=== PATIENT | female | born 1960 | race Caucasian/White ===

== ENCOUNTER 2019-04-04 18:31 | Inpatient (IN) | payer OTHER ==
--- NOTE | 2019-04-04 19:03 | ED ---
Psychiatric Complaint - HPI Summary HPI Summary: 58 year old F [facility] complains of worsening depression and suicidal ideation over the last 3 months. She states "I just want the emotional pain to go away." Symptoms aggravated by nothing. Symptoms alleviated by nothing. Patient states she spoke with her primary care provider and counselor today who both referred patient to the ED. tie worker Lindsay spoke with counselor Miryam Leal. Per director social, patient has hx chronic fatigue and is unable to take care of herself. Per director social, patient has hx trauma and a dysfunctional family. Per director social, patient recently reconnected with her parents who live in [place], from whom patient gets financial support, yet patient does not have a great relationship with them. Additionally, patient has four daughters over whom she does not have custody. Per director social, patient admits to being abusive to her dog, and patient's one daughter is on her way up from [place] to help patient take care of the dog. - History Of Current Complaint Chief Complaint: EDMentalHealth Time Seen by Provider: 04/04/19 18:44 Hx Obtained From: Patient Onset/Duration: Lasting Weeks, Still Present Timing: Constant Aggravating Factor(s): Nothing Alleviating Factor(s): Nothing - Allergies/Home Medications Allergies/Adverse Reactions: Allergies Allergy/AdvReac Type Severity Reaction Status Date / Time erythromycin base AdvReac Intermediate Abdominal Verified 11/27/17 11:46 Pain Home Medications: Home Medications Azelastine 0.05% (OPHTH)(NF) [Optivar 0.05% (NF)] 1 drop BOTH EYES BID 04/04/19 [History Confirmed 04/04/19] Bupropion XL* [Wellbutrin XL *] 150 mg PO DAILY 04/04/19 [History Confirmed ] Cetirizine* [ZyrTEC 10 MG TAB*] 10 mg PO DAILY 04/04/19 [History Confirmed 04/04] Estradiol VAG CM (NF) [Estrace VAG CM (NF)] 1 applic VAGINAL WEEKLY 04/04/19 [ History Confirmed 04/04/19] FLUoxetine CAP* [PROzac CAP*] 20 mg PO DAILY 04/04/19 [History Confirmed ] Omeprazole (Nf) [Prilosec (NF)] 40 mg PO DAILY 04/04/19 [History Confirmed 04/04] traZODone TAB* [Desyrel TAB*] 100 mg PO BEDTIME PRN 04/04/19 [History Confirmed 04/04/19] PMH/Surg Hx/FS Hx/Imm Hx Cardiovascular History: Denies: Other Cardiovascular Problems/Disorders Sensory History: Reports: Hx Contacts or Glasses Opthamlomology History: Reports: Hx Contacts or Glasses Psychiatric History: Reports: Hx Depression - Surgical History Surgery Procedure, Year, and Place: . partial hysterectomy. bunionectomy Infectious Disease History: No Infectious Disease History: Denies: Traveled Outside the [place] in Last 30 Days - Family History Known Family History: Positive: Other - breast CA - Social History Alcohol Use: None Hx Substance Use: No Substance Use Type: Reports: None Hx Tobacco Use: No Smoking Status (MU): Never Smoked Tobacco Review of Systems Negative: Fever Positive: Depressed, Other - suicidal ideation All Other Systems Reviewed And Are Negative: Yes Physical Exam - Summary Physical Exam Summary: Appearance: The patient is well-nourished in no acute distress and in no acute pain. Skin: The skin is warm and dry, and skin color reflects adequate perfusion. HEENT: The head is normocephalic and atraumatic. The pupils are equal and reactive. The conjunctivae are clear and without drainage. Nares are patent and without drainage. Mouth reveals moist mucous membranes, and the throat is without erythema and exudate. The external ears are intact. The ear canals are patent and without drainage. The tympanic membranes are intact. Neck: The neck is supple with full range of motion and non-tender. There are no carotid bruits. There is no neck vein distension. Respiratory: Chest is non-tender. Lungs are clear to auscultation and breath sounds are symmetrical and equal. Cardiovascular: Heart is regular rate and rhythm. There is no murmur or rub auscultated. There is no peripheral edema and pulses are symmetrical and equal. Abdomen: The abdomen is soft and non-tender. There are normal bowel sounds heard in all four quadrants and there is no organomegaly palpated. Musculoskeletal: There is no back tenderness noted. Extremities are non-tender with full range of motion. There is good capillary refill. There is no peripheral edema or calf tenderness elicited. Neurological: Patient is alert and oriented to person, place and time. The patient has symmetrical motor strength in all four extremities. Cranial nerves are grossly intact. Deep tendon reflexes are symmetrical and equal in all four extremities. Psychiatric: The patient has an appropriate affect and does not exhibit any anxiety or depression. Triage Information Reviewed: Yes Vital Signs On Initial Exam: Initial Vitals Temp Pulse Resp BP Pulse Ox 96.3 F 85 16 166/96 94 04/04/19 18:34 04/04/19 18:34 04/04/19 18:34 04/04/19 18:34 04/04/19 18:34 Vital Signs Reviewed: Yes Diagnostics - Vital Signs Vital Signs Temp Pulse Resp BP Pulse Ox 04/04/19 18:34 96.3 F 85 16 166/96 94 - Laboratory Result Diagrams: 04/04/19 19:08 04/04/19 19:08 Lab Statement: Any lab studies that have been ordered have been reviewed, and results considered in the medical decision making process. Re-Evaluation - Re-Evaluation First Eval Re-Evaluation Time: 20:34 Comment: patient is medically cleared for MHE Course/Dx - Course Course Of Treatment: Ms. Paulson was medically cleared in the emergency department and underwent a mental health eval. They felt that she was a candidate for admission. - Differential Dx/Clinical Impression Provider Diagnosis: Depression Discharge ED - Sign-Out/Discharge Documenting (check all that apply): Patient Departure Patient Received Moderate/Deep Sedation with Procedure: No - Discharge Plan Condition: Stable Disposition: PSYCHIATRIC FACILITY-[facility] - Billing Disposition and Condition Condition: STABLE Disposition: Psychiatric Facility [facility] - Attestation Statements Document Initiated by Scribe: Yes Documenting Scribe: Aury Centeno Provider For Whom Meredithe is Documenting (Include Credential): Gen Mariee MD Scribe Attestation: Aury Reid, scribed for Gen Mariee MD on 04/04/19 at 2108. Scribe Documentation Reviewed: Yes Provider Attestation: The documentation as recorded by the fortinoibAury rivas accurately reflects the service I personally performed and the decisions made by me, Gen Mariee MD Status of Scribe Document: Viewed
[2019-04-04 19:15] LABS: ABS Monocytes 0.4 10^3/ul (0-0.8); ABS Neutrophils 5.5 10^3/ul (1.5-7.7); Eosinophil % 0.5 %; Hematocrit 43 % (35-47); Lymphocyte % 14.5 %; Mean Corpuscular HGB Conc 35 g/dL (31-36); Mean Corpuscular Hemoglobin 30 pg (27-31); Mean Corpuscular Volume 88 fL (80-97); Mean Platelet Volume 7.3 fL (7.4-10.4); Platelet Count 303 10^3/uL (150-450); Red Blood Count 4.94 10^6 /uL (3.70-4.87); Red Cell Distribution Width 13 % (10-15)
[2019-04-04 19:34] LABS: ALT 18 U/L (7-52); AST 16 U/L (13-39); Albumin 4.3 g/dL (3.2-5.2); Albumin/Globulin Ratio 1.7 (1-3); Alkaline Phosphatase 65 U/L (34-104); Anion Gap 7 mmol/L (2-11); BUN/Creatinine Ratio 10.4 (8-20); Blood Urea Nitrogen 10 mg/dL (6-24); CO2 Carbon Dioxide 27 mmol/L (22-32); Calcium 9.1 mg/dL (8.6-10.3); Chloride 103 mmol/L (101-111); EGFR Non-African American 59.5 (>60); Globulin 2.6 g/dL (2-4); Glucose 114 mg/dL (70-100); Potassium 3.6 mmol/L (3.5-5.0); Sodium 137 mmol/L (135-145); Total Protein 6.9 g/dL (6.4-8.9)
[2019-04-04 19:46] LABS: Acetaminophen < 15 mcg/mL; Alcohol < 10 mg/dL (<10); Salicylate < 2.50 mg/dL (<30)
[2019-04-04 20:00] LABS: TSH (Thyroid Stimulating Horm) 1.78 mcIU/mL (0.34-5.60)
[2019-04-04 20:20] LABS: Urine Appearance Clear; Urine Bacteria 1+ (Absent); Urine Bilirubin Negative (Negative); Urine Blood 2+ (Negative); Urine Color Straw; Urine Glucose Negative (Negative); Urine Ketones Trace (Negative); Urine Nitrite Negative (Negative); Urine Protein Negative (Negative); Urine Red Blood Cell Trace(0-2/hpf) (Absent); Urine Specific Gravity 1.004 (1.010-1.030); Urine Urobilinogen Negative (Negative); Urine White Blood Cell Trace(0-5/hpf) (Absent)
[2019-04-04 20:33] LABS: Urine Benzodiazepine Screen None Detected (None Detect); Urine Opiates Screen None Detected (None Detect)
[2019-04-04] MEDS ORDERED: Al Hydrox/Mg Hydrox/Simet LIQ* 30 ML UDC PO PRN (22:12)
[2019-04-04] MEDS: Acetaminophen TAB* 325 MG PO PRN (23:32)
[2019-04-04] MEDS: traZODone TAB* 100 MG PO PRN (23:33)
[2019-04-05 07:51] LABS: HDL Cholesterol 46.4 mg/dL
[2019-04-05] MEDS: Pantoprazole TAB * 40 MG TAB PO SCH (08:58)
[2019-04-05] MEDS: BuPROPion XL* 150 MG TAB.XL PO SCH (08:58)
[2019-04-05] MEDS: Cholecalciferol TAB* 1000 UNITS PO SCH (08:59)
[2019-04-05] MEDS: FLUoxetine CAP* 20 MG PO SCH (08:59)
[2019-04-05] MEDS ORDERED: Estradiol VAG CM (NF) 1 APPLIC TUBE VAGINAL SCH (09:00)
[2019-04-05] MEDS: Cetirizine* 10 MG TAB PO SCH (09:00)
[2019-04-05] MEDS: Vitamin THERAPEUTIC TAB PO SCH (09:00)
[2019-04-05] MEDS: Acetaminophen TAB* 325 MG PO PRN (09:02)
--- NOTE | 2019-04-05 10:02 | HP ---
H&P (Free Text) History and Physical: Justification for admission: Immediate Safety. CC " I want to give up" The patient was brought to [facility] by herself. She reported that she is hopeless and feels that she wants to give up on everything and doesnt feel supported by her family. Her current stressors include having no support from her family. She talks to 2 of her daughters sometimes. She feels she is unable to take care of herself at home. She reports feeling alone and that no one cares about her. She is wearing a respiratory mask and says that she smells chemicals of new construction. She denied access to firearms or stockpiles of medications. She reported no changes in her sleep and poor appetite. The patient denied homicidal ideation intent or plan. The patient denied auditory and/ or visual hallucinations. MDD Reported feeling depressed and having no energy to do the things she found to be enjoyable in the past. She reported feeling empty inside with feelings of hopelessness , and worthlessness. Anxiety She picks at her arms frequently and this increases when she becomes anxious. At times she feels restless, high strung, or worrying too much most of the time. Denied having symptoms of anxiety such as having times where heart feels that it is beating out of chest , sweaty palms, or shallow breathing. Bipolar Denied symptoms of jose such as having many ideas at once. Denied increased talkativeness where no one can interrupt. Denied feeling irritable most of the time while having an persistent abundance of energy most of the day without the use of energy drinks, stimulants, or recreational drug use. Denied an increase in intensity in goal directed activities. Denied having the decreased need to sleep for days , having prolonged elevated mood , or feeling on top of the world. Denied impulsive risky sexual encounters. Denied spending money recklessly , going on spending sprees wiping out savings. Denied impulsively traveling out of town or country, having super day, and unrealistic wealth or fame. Psychosis Does not endorse hearing things that other people do not hear or seeing things other people do not see. Denied feeling that TV is making references. Denied feeling that people are spying , following , or reading their thoughts. Phobias: Patient denied having excessive fear of a particular thing or situation. Eating disorders: Patient denied having excessive eating habits or feelings of guilt after eating. Denied repeated episodes of self induced vomiting after eating. PTSD Denied flashbacks, nightmares and avoidance of a prior traumatic event. PAST PSYCHIATRIC HISTORY: Prior Diagnosis : Major depressive disorder History of past Psychiatric Hospitalizations: No prior psychiatric admission. History of past suicide/homicide attempts : Denied past suicide attempts. Denied past homicidal incidents. Outpatient follow-up: [facility] and her PCP Medications: Past trials of medications include prozac 20mg which was started a few days ago, and wellbutrin 150mg daily and trazodone. Recently discontinued from [facility] Guardianship: None. FAMILY HISTORY: - Suicide: Denied family history of suicide. - Mental illness: Describes her family as having mental illness but was unable to specify - Substance abuse: Brother uses cocaine and heroin. SUBSTANCE ABUSE HISTORY: Denied using alcohol, tobacco, heroin cocaine or other illicit substances. Denied abusing pills for recreational use. Denied past Substance abuse treatment. SOCIAL HISTORY: - Childhood: Raised by both parents in [place]. She describes her childhood as being rough because her parents would always fight. 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 Denied heart disease, diabetes, cancer. - Allergies: Denied drug or other allergies. Physical Exam: Please see ED note Mental Status Exam on Admission APPEARANCE : 58 year old female who appears older than her stated age. Patient is wearing mask over her mouth and appears to have poor hygiene and grooming. BEHAVIOR: Cooperative , calm EYE CONTACT: Fair PSYCHOMOTOR ACTIVITY: No psychomotor agitation or retardation. MOVEMENTS: No abnormal movements observed. SPEECH : Normal rate, rhythm, low volume MOOD : " Sad " AFFECT : Depressed and range is restricted THOUGHT PROCESS: Formulated and organized in a logical, linear goal directed manner. perseveration about her family dynamic THOUGHT CONTENT: preoccupation about her family dynamic PERCEPTION: No current auditory or visual hallucinations. Doesnt appear to be responding to internal cues. No evidence of depersonalization , de-realization, or illusions SUICIDALITY Passive suicidal ideation HOMICIDALITY Denied homicidal ideation, intent or plan. Insight/judgment: Poor insight and judgment ORIENTATION: Oriented to self, location, and time. Diagnosis on Admission: Major depressive disorder, severe. Excoriation disorder Assessment: 58 year old female with history of depression and passive suicidal ideation came to the hospital and was admitted to the BSU at [facility]. Plan #Admit to BSU, Q15 minute observation. Start regular diet. Encourage participation in activities on the milieu. #Patient evaluated in ED and was determined by the emergency room Physician to be medically fit for admission to the BSU. # Justification for Admission: For immediate safety per outlined in the [facility] Code. # The patient requires psychiatric inpatient admission at this time to assure safety, receive treatment and work toward stabilization. # Labs ordered: CBC, CMP, UDS, TSH, HBA1c, TSH, Toxicology screen, Urine analysis, and lipid profile. # If patient continues to have chemical smells will consider neurology consult as temporal lobe seizures can present with olfactory hallucinations # Obtain collateral information once release is signed. # Collaboration with Social Work #Continue home medication for now. # No history of seizure disorder or eating disorder. # Order to allow for her to use own eye drops #Goals before discharge include: To eliminate/ reduce suicidal ideation Tentative Discharge: Pending psychiatric stabilization The risks, benefits, and alternative treatment options were discussed as well as the risks of refusing treatment. After this discussion and an acknowledgement of this understanding was made. A risk/ benefit assessment of treatment was considered and discussed with the patient. When comparing the risks of treatment with the dangers of not receiving treatment, the benefits of treatment outweigh the treatment risks at this time. Risks of allergy, suicidal ideation, behavioral changes, dystonia, rashes, electrolyte imbalances, movement disorders, cardiac conduction changes, serotonin syndrome, metabolic risks were among some of the risks discussed. Acetaminophen (Tylenol Tab*) 650 mg PO Q4H PRN PRN Reason: PAIN or TEMP > 101 F Last Admin: 04/05/19 09:02 Dose: 650 mg Al Hydrox/Mg Hydrox/Simethicone (Maalox Plus*) 30 ml PO Q4H PRN PRN Reason: INDIGESTION Azelastine HCl (Optivar 0.05% (Nf)) 1 drop BOTH EYES BID [facility] Bupropion HCl (Wellbutrin Xl *) 150 mg PO DAILY [facility] Last Admin: 04/05/19 08:58 Dose: 150 mg Cetirizine HCl (Zyrtec*) 10 mg PO DAILY [facility] Last Admin: 04/05/19 09:00 Dose: Not Given Cholecalciferol (Vitamin D Tab*) 5,000 units PO DAILY [facility] Last Admin: 04/05/19 08:59 Dose: Not Given Estradiol (Estrace Vag Cm (Nf)) 1 applic VAGINAL WEEKLY [facility] Fluoxetine HCl (Prozac Cap*) 20 mg PO DAILY [facility] Last Admin: 04/05/19 08:59 Dose: 20 mg Multivitamins (Theragran Tab*) 1 tab PO DAILY [facility] Last Admin: 04/05/19 09:00 Dose: Not Given Pantoprazole Sodium (Protonix Tab*) 40 mg PO DAILY [facility] Last Admin: 04/05/19 08:58 Dose: 40 mg Trazodone HCl (Desyrel Tab*) 100 mg PO BEDTIME PRN PRN Reason: INSOMNIA Last Admin: 04/04/19 23:33 Dose: 100 mg Sodium 137 mmol/L (135-145) 04/04/19 19:08 Potassium 3.6 mmol/L (3.5-5.0) 04/04/19 19:08 BUN 10 mg/dL (6-24) 04/04/19 19:08 Creatinine 0.96 mg/dL (0.51-0.95) H 04/04/19 19:08 Hemoglobin A1c 5.6 % (4.0-5.6) 04/05/19 07:00 Calcium 9.1 mg/dL (8.6-10.3) 04/04/19 19:08 AST 16 U/L (13-39) 04/04/19 19:08 ALT 18 U/L (7-52) 04/04/19 19:08 Triglycerides 172 mg/dL 04/05/19 07:00 Cholesterol 209 mg/dL 04/05/19 07:00 LDL Cholesterol 128 mg/dL 04/05/19 07:00
[2019-04-05] MEDS: AZELASTINE 0.05% BOTH EYES SCH ×2 (15:07→20:57)
[2019-04-05] MEDS: traZODone TAB* 100 MG PO PRN (22:31)
[2019-04-06] MEDS: Cholecalciferol TAB* 1000 UNITS PO SCH (09:07)
[2019-04-06] MEDS: FLUoxetine CAP* 20 MG PO SCH (09:08)
[2019-04-06] MEDS: BuPROPion XL* 150 MG TAB.XL PO SCH (09:09)
[2019-04-06] MEDS: Pantoprazole TAB * 40 MG TAB PO SCH (09:10)
[2019-04-06] MEDS: AZELASTINE 0.05% BOTH EYES SCH ×2 (09:13→22:14)
[2019-04-06] MEDS: Vitamin THERAPEUTIC TAB PO SCH (09:13)
[2019-04-06] MEDS: Cetirizine* 10 MG TAB PO SCH (09:13)
--- NOTE | 2019-04-06 14:28 | PN ---
Subjective - Subjective Date of Service: 04/06/19 Service Type: [id number] Hosp care 15 min low complexity Subjective: Cee is seen in coverage for Dr. Reeves, who is out for the next week. The patient is found in bed, where she has been all day, and has a myriad of complaints, mostly regarding her isolated life at home. "I've been trying to move back to [place] for the past 4 years and all I've ran into is red tape and a series of roadblocks." She complains of inability to get her [facility] Section 8 housing allowance [place] from [place]. "They want me to go to [place] in person for the interview and I can't do that." She describes herself as a "shut-in" who can't travel because she has sensitivities to the chemicals used in [employer]. She is wearing a patient mask in bed, saying that she's similarly sensitive to the chemicals used here in the hospital. She is requesting home health services and generally appears to be someone who wants others to assist her with multiple things. She denies SI today. Objective - General Observations Appearance: Well Groomed Appears Stated Age: Yes Stature: Overweight Posture: WNL Eye Contact: Average Behavior/Activity: WNL - Interaction Observations Attitude Towards Examiner: Cooperative Stated Mood: Euthymic Affect: Full Speech Pattern/Tone: Clear, Appropriate, Normal Volume Thought Process: Coherent Perception: WNL Thought Content: WNL Hallucination Type: None Delusion Type: None - Cognitive Function Orientation: A&O x 4 Level of Consciousness: Awake Cognition: WNL Estimated Intelligence: Normal Insight: WNL Judgment Within Normal Limits: Yes - Medication Compliance Cooperative with Inpatient Medication Regimen: Yes - Group Participation Participates in Group Activities: No Assessment - Assessment Merits Inpatient Hospitalization: Consolidate Improvements, Pending Safe DC Plan Inpatient DSM-V Dx: F33.1 Clinical Impression: 58 y.o. single, white female with a history of depression arrives on a voluntary basis seeking hospitalization for depressed mood and passive SI. BSU: Problem List - Patient Problems (1) MDD (major depressive disorder), recurrent episode, moderate Current Visit: Yes Status: Acute Code(s): F33.1 - MAJOR DEPRESSIVE DISORDER , RECURRENT, MODERATE SNOMED Code(s): 400461132 Plan - Plan Treatment Plan: Name: CEE BUNCH Birthdate: 1960 [id number] We will continue outpatient pharmacologic management with bupropion XL 150mg PO qam, fluoxetine 20mg PO qday and trazodone 100mg PO qhs. The patient appears needy with strong dependent personality traits. Target April 08 for discharge. Refer to outpatient clinic, case management services and perhaps home health support. Continued Medication Management: Continue Outpt Medication Medications: Current Medications Acetaminophen (Tylenol Tab*) 650 mg PO Q4H PRN PRN Reason: PAIN or TEMP > 101 F Last Admin: 04/05/19 09:02 Dose: 650 mg Al Hydrox/Mg Hydrox/Simethicone (Maalox Plus*) 30 ml PO Q4H PRN PRN Reason: INDIGESTION Azelastine HCl (Optivar 0.05% (Nf)) 1 drop BOTH EYES BID [facility] Last Admin: 04/06/19 09:13 Dose: Not Given Bupropion HCl (Wellbutrin Xl *) 150 mg PO DAILY [facility] Last Admin: 04/06/19 09:09 Dose: 150 mg Cetirizine HCl (Zyrtec*) 10 mg PO DAILY [facility] Last Admin: 04/06/19 09:13 Dose: Not Given Cholecalciferol (Vitamin D Tab*) 5,000 units PO DAILY [facility] Last Admin: 04/06/19 09:07 Dose: 5,000 units Estradiol (Estrace Vag Cm (Nf)) 1 applic VAGINAL WEEKLY [facility] Fluoxetine HCl (Prozac Cap*) 20 mg PO DAILY [facility] Last Admin: 04/06/19 09:08 Dose: 20 mg Multivitamins (Theragran Tab*) 1 tab PO DAILY [facility] Last Admin: 04/06/19 09:13 Dose: Not Given Pantoprazole Sodium (Protonix Tab*) 40 mg PO DAILY [facility] Last Admin: 04/06/19 09:10 Dose: 40 mg Trazodone HCl (Desyrel Tab*) 100 mg PO BEDTIME PRN PRN Reason: INSOMNIA Last Admin: 04/05/19 22:31 Dose: 100 mg Vitamin B Complex/Vitamin E (B Complex-50*) 1 tab PO QPM [facility] - Discharge Plan Discharge Plan: Outpatient Follow Up Outpatient Program: [facility]
[2019-04-06] MEDS: VITAMIN B COMPLEX PO SCH (17:20)
[2019-04-06] MEDS: traZODone TAB* 100 MG PO PRN (22:18)
[2019-04-07] MEDS: Pantoprazole TAB * 40 MG TAB PO SCH (08:44)
[2019-04-07] MEDS: FLUoxetine CAP* 20 MG PO SCH (08:44)
[2019-04-07] MEDS: BuPROPion XL* 150 MG TAB.XL PO SCH (08:44)
[2019-04-07] MEDS: Vitamin THERAPEUTIC TAB PO SCH (08:46)
--- NOTE | 2019-04-07 13:26 | PN ---
Subjective - Subjective Date of Service: 04/07/19 Service Type: [id number] Hosp care 15 min low complexity Subjective: Cee continues to mostly stay in her room, citing concerns about "chemical sensitivities" cleaning solvents used here in the hospital and "feeling exhausted." Nevertheless, she states that her mood and attitude are improving and she denies suicidal thoughts. She has allowed SW to file a [employer] referral for enhanced older adult social work specialist and case management in the community after discharge. She is tolerating medications well and accepting visits from her daughter, who has traveled here from [place] to support her. Objective - General Observations Appearance: Well Groomed Appears Stated Age: No Stature: Overweight Posture: WNL Eye Contact: Average Behavior/Activity: WNL - Interaction Observations Attitude Towards Examiner: Cooperative Stated Mood: Euthymic Affect: Full Speech Pattern/Tone: Clear Thought Process: Coherent Perception: WNL Thought Content: WNL Hallucination Type: None Delusion Type: None - Cognitive Function Orientation: A&O x 4 Level of Consciousness: Awake Cognition: WNL Estimated Intelligence: Normal Insight: WNL Judgment Within Normal Limits: Yes - Medication Compliance Cooperative with Inpatient Medication Regimen: Yes - Group Participation Participates in Group Activities: Yes Assessment - Assessment Merits Inpatient Hospitalization: Consolidate Improvements, Pending Safe DC Plan Inpatient DSM-V Dx: F33.1 Clinical Impression: 58 y.o. single, white female with a history of depression arrives on a voluntary basis seeking hospitalization for depressed mood and passive SI. BSU: Problem List - Patient Problems (1) MDD (major depressive disorder), recurrent episode, moderate Current Visit: Yes Status: Acute Code(s): F33.1 - MAJOR DEPRESSIVE DISORDER , RECURRENT, MODERATE SNOMED Code(s): 946806286 Plan - Plan Treatment Plan: Name: CEE BUNCH Birthdate: 1960 [id number] We will continue outpatient pharmacologic management with bupropion XL 150mg PO qam, fluoxetine 20mg PO qday and trazodone 100mg PO qhs. The patient appears needy with strong dependent personality traits. Target Thursday, April 08 for discharge. Refer to outpatient clinic and case management services. Continued Medication Management: Continue Outpt Medication Medications: Current Medications Acetaminophen (Tylenol Tab*) 650 mg PO Q4H PRN PRN Reason: PAIN or TEMP > 101 F Last Admin: 04/05/19 09:02 Dose: 650 mg Al Hydrox/Mg Hydrox/Simethicone (Maalox Plus*) 30 ml PO Q4H PRN PRN Reason: INDIGESTION Azelastine HCl (Optivar 0.05% (Nf)) 1 drop BOTH EYES BID [facility] Last Admin: 04/06/19 22:14 Dose: 1 drop Bupropion HCl (Wellbutrin Xl *) 150 mg PO DAILY [facility] Last Admin: 04/07/19 08:44 Dose: 150 mg Cetirizine HCl (Zyrtec*) 10 mg PO DAILY [facility] Last Admin: 04/06/19 09:13 Dose: Not Given Cholecalciferol (Vitamin D Tab*) 5,000 units PO DAILY [facility] Last Admin: 04/06/19 09:07 Dose: 5,000 units Estradiol (Estrace Vag Cm (Nf)) 1 applic VAGINAL WEEKLY [facility] Fluoxetine HCl (Prozac Cap*) 20 mg PO DAILY [facility] Last Admin: 04/07/19 08:44 Dose: 20 mg Multivitamins (Theragran Tab*) 1 tab PO DAILY [facility] Last Admin: 04/07/19 08:46 Dose: Not Given Pantoprazole Sodium (Protonix Tab*) 40 mg PO DAILY [facility] Last Admin: 04/07/19 08:44 Dose: 40 mg Trazodone HCl (Desyrel Tab*) 100 mg PO BEDTIME PRN PRN Reason: INSOMNIA Last Admin: 04/06/19 22:18 Dose: 100 mg Vitamin B Complex/Vitamin E (B Complex-50*) 1 tab PO QPM [facility] Last Admin: 04/06/19 17:20 Dose: 1 tab - Discharge Plan Discharge Plan: Outpatient Follow Up Outpatient Program: [facility]
[2019-04-07] MEDS: Cholecalciferol TAB* 1000 UNITS PO SCH (13:49)
[2019-04-07] MEDS: Cetirizine* 10 MG TAB PO SCH (13:49)
[2019-04-07] MEDS: AZELASTINE 0.05% BOTH EYES SCH ×2 (13:49→22:40)
[2019-04-07] MEDS: VITAMIN B COMPLEX PO SCH (17:25)
[2019-04-07] MEDS: traZODone TAB* 100 MG PO PRN (22:40)
[2019-04-08] MEDS ORDERED: Influenza VAC *QUAD* 2019-20* 0.5 ML SYRINGE IM ONE (09:00)
[2019-04-08] MEDS: BuPROPion XL* 150 MG TAB.XL PO SCH (09:07)
[2019-04-08] MEDS: FLUoxetine CAP* 20 MG PO SCH (09:07)
[2019-04-08] MEDS: AZELASTINE 0.05% BOTH EYES SCH (09:09)
[2019-04-08] MEDS: Cholecalciferol TAB* 1000 UNITS PO SCH (09:09)
[2019-04-08] MEDS: Cetirizine* 10 MG TAB PO SCH (09:09)
[2019-04-08] MEDS: Pantoprazole TAB * 40 MG TAB PO SCH (09:10)
[2019-04-08] MEDS: Vitamin THERAPEUTIC TAB PO SCH (09:10)
[2019-04-08 11:42] VITALS: BP 141/85
--- NOTE | 2019-04-08 23:40 | DS ---
DISCHARGE SUMMARY: DATE OF ADMISSION: 04/04/19 DATE OF DISCHARGE: 04/08/19 DISCHARGE DIAGNOSES: [place] I: Major depressive disorder, recurrent, moderate. [place] II: Dependent personality traits. CONDITION AT THE TIME OF DISCHARGE: Improved. The patient is denying suicidal ideations and has done so for several days now. She has been safe on all checks. Unfortunately, the patient was not a participant in [facility] programming citing that she has chemical sensitivities to certain solvents used by housekeeping here in the hospital and for this reason tended to stay in her room. Nonetheless, she demonstrated no self-harm behaviors and was consistently eager to leave the hospital and pursue a change in her living situation as she would like to move to [place] to be closer with her 2 daughters and some of her grandchildren. The patient was accepting the case management services, which the treatment team referred her to in the outpatient setting. She was grateful for the care that she had here. It should be noted that we did not make any changes in her medications and she tolerated her medications well. Her family has been involved in her discharge planning and they are in agreement with the discharge plan at this time. MENTAL STATUS EXAM AT THE TIME OF DISCHARGE: Cee is a middle-aged, white, obese female wearing a dress and a medical mask on her face, which she takes off in the presence of this interviewer. She is clean and well-groomed, calm, cooperative. Speech has a normal rate, tone, and volume. Mood appears to be euthymic with full affect. Thought process is linear and goal-directed. Thought content is significant for her desire to be discharged back home. She is denying suicidal or homicidal ideations. She denies auditory or visual hallucinations. Insight and judgment are fair given her willingness to follow up with outpatient mental health resources. Cognitively, she is awake and alert with what would appear to be an average intellect. DISCHARGE INSTRUCTIONS TO THE PATIENT: Part A: Medications: The patient takes: 1. Vitamin D 5000 units daily. 2. Prilosec 40 mg daily. 3. Prozac 20 mg daily. 4. Zyrtec 10 mg daily. 5. Estradiol cream once daily. 6. Trazodone 100 mg at night as a p.r.n. for insomnia. 7. Optivar eye drops 1 drop to both eyes b.i.d. 8. Wellbutrin XL 150 mg p.o. daily. Part B: Diet is regular. Part C: Activities: As tolerated. The patient is a nonsmoker. There are no laboratory or diagnostic studies pending at the time of discharge. Part D: Followup care: The patient will follow up with her outpatient psychotherapist, a private rn clinician named Miryam Leal, that appointment is established for 04/13/19 at 3 p.m. In addition, we have made a referral to the [facility], [place] and that agency will be reaching out to the patient to initiate case management services in the community. They have her contact information and will be initiating contact. Part E: Substance abuse followup is nonapplicable. Part F: Disposition: The patient is going home to her house here in [place]. HOSPITAL COURSE: Part A: Reason for admission: The patient is a 58-year-old white female with a history of depression, who came to the hospital by herself on a voluntary basis claiming that she is hopeless and feels like she wants to give up on everything and does not feel supported by her family. Current stressors include having no support from her children. She states that she talked only 2 of her 4 daughters. She feels like she is unable to take care of herself at home. She reports feeling alone and no one cares about her. She has been wearing a respiratory mask and states that she smells chemicals from the new construction on the behavioral science unit. She denied access to firearms or stockpiles of medications. She reported no changes in her sleep, although she did endorse some poor appetite. The patient denied homicidal ideation or plan. She denied auditory or visual hallucinations. She is reporting depressed mood as well as poor energy, some anhedonia. She reported feeling empty inside with feelings of hopelessness and worthlessness. Part B: Psychiatric treatment rendered: The patient was admitted to the adult behavioral health unit where she was placed on q.15-minute checks for her own safety. Dr. Loo resumes outpatient medications including fluoxetine and bupropion as well as trazodone on an as-needed basis for sleep. Ultimately, we did not make any changes in her medications. The patient tended to be isolative. She slept throughout most of the day and would not participate in group programming. Her daughters who were involved in her treatment commented that they are often frustrated with her because of certain dependent characteristics, in which she will wait for her daughters to do things for her instead of initiating necessary actions for herself. This dynamic seemed to re- create itself on our unit where she would have staff bring her meals and do things for her rather than proactively going to groups or making social connections with peers. Her suicidal ideations resolved within the first day of hospitalization and she explained that she merely needed to stay in the hospital in order to get sleep. Her daughters were frustrated by her lack of progress as was her outpatient therapist, social media marketing analyst named Miryam Leal. Nonetheless, we did not feel that the patient warranted further inpatient services given the fact that she was no longer suicidal and she had treatment in the outpatient environment. A particular concern of her was that she would like to move to the [place] area where she has more psychosocial support; however, she has felt stymied by the process of changing her [address] 8 Housing from [facility] to [place]. We did offer her a referral to case management services which she gladly accepted. She has an intake through the [facility], which is run through [facility] and they will be contacting her to set up an appointment with her. She will also follow up with her outpatient therapist. At this time, we see no further benefit to inpatient level care. She is being discharged to the outpatient setting and we see no barriers to her receiving what she needs in that realm. [id number]/CPS #: [id number] RUTHANN
== END 2019-04-08 12:15 | disposition home or self-care (01) | DRG 751 ==
LOC: ED 18:31 → BSU 20:59
PROVIDERS: ADMIT Psychiatry & Neurology Psychiatry; ATTEND Psychiatry & Neurology Psychiatry
DX: F33.1 Major depressive disorder, recurrent, moderate (principal); R45.851 Suicidal ideations; F42.4 Excoriation (skin-picking) disorder; R53.82 Chronic fatigue, unspecified; E66.9 Obesity, unspecified; Z88.1 Allergy status to other antibiotic agents; Z90.711 Acquired absence of uterus with remaining cervical stump; Z80.3 Family history of malignant neoplasm of breast; Z81.3 Family history of other psychoactive substance abuse and dependence; Z68.38 Body mass index [BMI] 38.0-38.9, adult
CPT/HCPCS: 36415; 80053; 80061; 80307; 80320; 80329; 81003; 81015; 83036; 84443; 85025; 87086; 99222; 99231; 99238; 99284; A9270-GY; G0480